=== PATIENT | male | born 1955 | race African-American/Black ===

== ENCOUNTER 2022-10-10 10:15 | Emergency (ER) | payer MEDICARE, SELFPAY ==
--- NOTE | ~2022-10-10 | XR_ITS ---
EXAMINATION: XR shoulder RT min 2V DATE: 10/10/2022 12:21 INDICATION: Right shoulder pain and limited range of motion TECHNIQUE: AP internally and externally rotated, AP oblique externally rotated and transscapular Y vi ews of the right shoulder were obtained. COMPARISON: None FINDINGS: Normal alignment. No fracture.Mild glenohumeral and moderate acromioclavicular osteoarthritis. Small to moderate-sized inferiorly directed osteophytes at the lateral head of the clavicle. The acromion undersurface is flat in morphology (type I). Soft tissues are unremarkable. Visualized portion of the right lung are clear. IMPRESSION: Mild right glenohumeral and moderate acromioclavicular osteoarthritis. Reviewed, dictated and finalized at location A.
--- NOTE | ~2022-10-10 | US_ITS ---
EXAMINATION: US venous doppler UE RT DATE: 10/10/2022 12:00 INDICATION: Right upper limb pain and swelling TECHNIQUE: Grayscale images without and with compression and Doppler images of the right upper extrem ity veins were obtained. COMPARISON: None. FINDINGS: The right internal jugular vein, subclavian vein, axillary vein, brachial vein, basilic vein, cephali c vein, radial vein, and ulnar vein are patent. IMPRESSION: 1. Patent right upper extremity veins. No evidence of venous thrombosis. Reviewed, dictated and finalized at location A.
[2022-10-10 10:17] VITALS: BP 166/93; PULSE 99; RESP 16; TEMP 36.7; O2SAT 98
[2022-10-10 11:22] LABS: Basophils Percent Auto 0.2 % (0.2-1.2); Eosinophils Percent Auto 0.2 % (0-4.4); Hematocrit 39.3 % (42.0-52.0); Hemoglobin 12.2 g/dL (14.0-18.0); Immature Granulocyte Absolute 0.01 K/mm3 (0.00-0.031); Immature Granulocyte Percent A 0.2 % (0-0.5); Lymphocytes Absolute Auto 1.89 K/mm3 (0.9-3.2); Lymphocytes Percent Auto 34.8 % (18.3-44.2); Mean Corpuscular Hemoglobin 27.2 pg (26-34); Mean Corpuscular Volume 87.7 fl (80-100); Mean Platelet Volume 10.8 fl (7.4-10.4); Monocytes Absolute Auto 0.5 K/mm3 (0.1-0.6); Monocytes Percent Auto 9.2 % (2.6-8.5); Neutrophils Percent Auto 55.4 % (45.5-73.1); Platelet Count Result 158 k/mm3 (150-375); Red Blood Count 4.48 M/mm3 (4.6-6.20); Red Cell Distribution Width 13.2 % (11.5-14.5); White Blood Count 5.4 K/mm3 (4.5-10.0)
[2022-10-10 11:32] LABS: Alanine Aminotransferase 18 U/L (6-50); Albumin Level 4.7 g/dL (3.5-5.1); Alkaline Phosphatase 41 U/L (38-126); Anion Gap 14 mmol/L (8-16); Aspartate Amino Transferase 26 U/L (17-59); Bilirubin,Total 1.2 mg/dL (0.2-1.3); Blood Urea Nitrogen 16 mg/dL (9-20); Calcium 9.5 mg/dL (8.4-10.2); Carbon Dioxide 21 mmol/L (22-30); Chloride 105 mmol/L (98-107); Creatine Kinase 83 U/L (55-170); Estimated CRCL calculation 75 ml/min; Estimated Glomerular Filt Rate > 60; Glucose 104 mg/dL (65-110); Potassium 3.6 mmol/L (3.4-5.0); Sodium 140 mmol/L (137-145)
--- NOTE | 2022-10-10 11:55 | ED.UPPEXIN ---
HPI - Extremity Injury (Upper) General Chief Complaint: Extremity Injury, Upper Stated Complaint: right arm injury Time Seen by Provider: 10/10/22 10:51 Source: patient and RN notes reviewed Mode of arrival: ambulatory Limitations: no limitations History of Present Illness HPI narrative: This is a 67 year old male who presents for evaluation of right shoulder pain. He states he has been doing push ups every day for 3 months and over the past week he has had right shoulder pain. Pain worse with movement. He also states his right arm seems swollen compare to his left. He denies numbness, tingling, neck pain or right lower extremity symptoms. He has not taken any medication for his pain. Related Data Allergies Allergy/AdvReac Type Severity Reaction Status Date / Time No Known Allergies Allergy Verified 10/10/22 13:27 Review of Systems Constitutional: Constitutional: Denies weakness Cardiovascular: Cardiovascular: Denies syncope, Denies rapid heart rate, Denies irregular heart rhythm, Denies leg edema and Denies dyspnea Respiratory: Respiratory: Denies chest congestion, Denies hemoptysis, Denies excessive phlegm production and Denies dyspnea Gastrointestinal: Gastrointestinal: Denies abdominal pain, Denies hematochezia, Denies diarrhea and Denies vomiting Genitourinary: Genitourinary: Denies hematuria, Denies dysuria, Denies penile discharge and Denies testicular pain Musculoskeletal: Musculoskeletal: Reports arthralgias, Reports joint swelling, Denies loss of height and Denies muscle weakness Neurologic: Denies syncope, Denies focal weakness and Denies weakness PMFSH Past Medical History Medical History (Updated 10/10/22 @ 13:27 by Cristal Yuen MD) Patient denies medical problems Social History Social History (Updated 10/10/22 @ 13:22 by Cristal Yuen MD) Smoking status: Never smoker Exam Const: General: no acute distress and alert Nutritional Appearance: well nourished Orientation/consciousness: patient oriented x3 Limitations: no limitations HENMT: Head: normal to inspection Eyes: EOM: EOMs intact bilaterally Neck: Neck: normal visual inspection Chest: Chest palpation & inspection: normal inspection of the chest Skin: General skin exam: normal color Rashes: no rashes Wounds: no wounds Neuro: General: patient oriented x3, moves all extremities and CN's II-XI intact bilaterally Extrem: Other: TTP right anterior shoulder, right arm pain with abduction and tremor to right arm with movement. sensation intact , radial pulse intact. Psych: Mental Status: mental status grossly normal Affect: normal affect Attitude: cooperative Course Vital Signs Vital signs: Vital Signs Temperature 98.0 F 10/10/22 10:17 Pulse Rate 99 10/10/22 10:17 Respiratory Rate 16 10/10/22 10:17 Blood Pressure 166/93 H 10/10/22 10:17 Pulse Oximetry 98 10/10/22 10:17 Oxygen Delivery Room Air 10/10/22 10:17 Temperature 98.0 F 10/10/22 10:17 Pulse Rate 85 10/10/22 13:31 Respiratory Rate 19 10/10/22 13:31 Blood Pressure 166/93 H 10/10/22 10:17 Pulse Oximetry 100 10/10/22 13:31 Oxygen Delivery Room Air 10/10/22 10:17 MDM - Extremity Injury (Upper) Differential Diagnosis Differential diagnosis: Likely dislocation of shoulder and other (rotator cuff injury, tendonitis. radiculopathy, shoulder pain, arthritis. ) Lab Data Attestation: I reviewed the patient's lab results. 10/10/22 11:14 10/10/22 11:14 Labs: Lab Results 10/10/22 Range/Units 11:14 WBC 5.4 (4.5-10.0) K/mm3 RBC 4.48 L (4.6-6.20) M/mm3 Hgb 12.2 L (14.0-18.0) g/dL Hct 39.3 L (42.0-52.0) % MCV 87.7 (80-100) fl MCH 27.2 (26-34) pg MCHC 31.0 L (32-36) g/dl RDW 13.2 (11.5-14.5) % Plt Count 158 (150-375) k/mm3 MPV 10.8 H (7.4-10.4) fl Immature Gran % (Auto) 0.2 (0-0.5) % Neut % (Auto) 55.4 (45.5-73.1) % Lymph % (Auto) 34.
[2022-10-10] MEDS: KETOROLAC 30 MG/ML VIAL (*BKC) IM (12:40)
[2022-10-10 13:31] VITALS: PULSE 85; RESP 19; O2SAT 100
== END 2022-10-10 13:32 | disposition home or self-care (01) ==
PROVIDERS: Emergency Provider General Practice
DX: S49.91XA Unspecified injury of right shoulder and upper arm, initial encounter (principal); X50.0XXA Overexertion from strenuous movement or load, initial encounter; M79.89 Other specified soft tissue disorders
CPT/HCPCS: 36415; 73030; 80053; 82550; 85025; 93971; 96372; 99284; A4565; J1885

== ENCOUNTER 2025-02-10 13:36 | Inpatient (IN) | payer MEDICARE, SELFPAY ==
[2025-02-10] VITALS (13 sets, daily range): BP systolic 143–193; BP diastolic 81–97; PULSE 89–108; RESP 16–23; TEMP 36.2–36.9; O2SAT 97–99; BMI 28.0
--- NOTE | ~2025-02-10 | XR_ITS ---
EXAMINATION: XR chest 1V portable COMPARISON: No comparisons available. HISTORY: dizziness FINDINGS: Small basilar infiltrates. Mild pulmonary venous congestion. No pneumothorax. Mild cardiomegaly. Mediastinal and hilar contours are within normal limits. Bony thorax no acute abnormality. Miscellaneous: None Impression: Mild CHF Reviewed, dictated and finalized at location P. STITCHING MACHINE ARMHOLE FELLER Impression: Mild CHF
--- NOTE | ~2025-02-10 | MR_ITS ---
EXAMINATION: MR brain/brain stem wo/w con DATE: 02/11/2025 12:12 INDICATION: Parkinson's disease. TECHNIQUE: Magnetic resonance imaging (MRI) of the brain and brainstem was performed without and with intravenous contrast. Sequences included sagittal and axial T1-weighted SE, axial diffusion-weighted FS SE, axial T2*-weighted GRE, axial T2-weighted FLAIR Propeller, and axial T2-weighted Propeller. Apparent diffusion coefficient (ADC) maps were created. 19 cc MultiHance administered intravenously. COMPARISON: CT brain dated 02/10/2025. FINDINGS: Mild generalized atrophy. There are scattered moderate periventricular and subcortical white matter changes, most likely related to small vessel ischemic disease (microangiopathy). No ventriculomegaly or midline shift. Paranasal sinuses are unremarkable. Orbits are symmetric without disconjugate gaze. No abnormal contrast enhancement. No acute infarction or hemorrhage. Structures of the posterior fossa including 7/8th cranial nerve complexes are normal. Paranasal sinuses are unremarkable. IMPRESSION: 1. No acute intracranial abnormality. Reviewed, dictated and finalized at location O. ZING MACHINE OPERATOR
--- NOTE | ~2025-02-10 | CT_ITS ---
EXAMINATION: CT angiogram, head and neck: DATE: 02/10/2025. INDICATION: Syncope. Dizziness. TECHNIQUE: CT angiogram was performed with 100 cc of Omnipaque 350. Multiplanar and 3-D reconstruction were obtained. COMPARISON: Noncontrast CT head dated 02/10/2025 FINDINGS: The vertebral arteries are patent in the neck on both sides. No hemodynamically significant obstruction of the common carotid and internal carotid arteries in the neck. No evidence of carotid dissection. Vertebral and basilar arteries are patent at the skull base. Posterior cerebral arteries are patent on both sides. Intracranial portion of internal carotid arteries are patent on both sides. The anterior cerebral arteries are patent. Middle cerebral arteries are patent. Dural venous sinuses are patent. IMPRESSION: 1. Vertebral arteries are patent in the neck on both sides. No hemodynamically significant obstruction of the carotid arteries in the neck based on nascet criteria. 2. Major arteries of [place] are patent. Dural venous sinuses are patent. Reviewed, dictated and finalized at location T. RONMENTAL INTERN IMPRESSION: 1. Vertebral arteries are patent in the neck on both sides. No hemodynamically significant obstruction of the carotid arteries in the neck based on nascet cri teria. 2. Major arteries of [place] are patent. Dural venous sinuses are garnica nt.
--- NOTE | ~2025-02-10 | CT_ITS ---
EXAMINATION: CT brain wo con DATE: 02/10/2025 14:04 INDICATION: Dizziness. Syncope. TECHNIQUE: Computed tomography (CT) of the head was performed without intravenous contrast. Sagittal and coronal reconstructions were performed. The mA was adjusted according to patient size. Iterative reconstruction technique was employed. The dose-length product was 605.33 mGy-cm. COMPARISON: None FINDINGS: No acute intracranial hemorrhage, acute infarction or abnormal extra axial fluid collection. There is mild to moderate scattered white matter hypoattenuation consistent with chronic small vessel ischemic disease. Symmetric prominence of the sulci consistent with mild age-appropriate diffuse cerebral volume loss. Ventricles are normal and symmetric. No mass/mass effect. Mild mucosal thickening the bilateral maxillary sinuses. The orbits and mastoid air cells are normal. Intracranial calcified cerebral atherosclerosis is noted. IMPRESSION: 1. No acute intracranial process. 2. Age-related changes including mild diffuse volume loss and mild to moderate scattered white matter hypoattenuation consistent with chronic small vessel ischemic disease. Reviewed, dictated and finalized at location A. ANGIOGRAPHY IMPRESSION: 1. No acute intracranial process. 2. Age-related changes including mild diffuse volume loss and mild to moderate scattered white matter hypoattenuation consistent with chronic small vessel isc hemic disease.
--- NOTE | 2025-02-10 13:38 | ECG_ITS ---
Test Date: 2025-02-10 14:23:57 Measurements Intervals [place] Rate: 108 P: 54 [place]: 205 QRS: 18 QRSD: 91 T: 44 QT: 320 QTc: 431 Interpretive Statements SINUS TACHYCARDIA ABNORMAL RHYTHM ECG No previous ECG available for comparison Electronically Signed On 02-10-2025 17:35:17 [employer] CUR[employer] by Rodrigo Ny M.D.
[2025-02-10 14:17] LABS: Hematocrit 41.7 % (42.0-52.0); Hemoglobin 13.4 g/dL (14.0-18.0); Immature Granulocyte Percent A 0.2 % (0-0.5); Lymphocytes Absolute Auto 2.84 K/mm3 (0.9-3.2); Mean Corpuscular HGB Conc 32.1 g/dl (32-36); Mean Corpuscular Hemoglobin 28.5 pg (26-34); Mean Corpuscular Volume 88.5 fl (80-100); Nucleated Red Blood Cells Absolute Auto 0.000 K/mm3 (0.0-0.012); Nucleated Red Blood Cells Perc 0.0 % (0.0-0.2); Platelet Count Result 167 k/mm3 (150-375); Red Blood Count 4.71 M/mm3 (4.6-6.20); White Blood Count 9.2 K/mm3 (4.5-10.0)
[2025-02-10 14:28] LABS: Estimated CRCL calculation 73 ml/min; Estimated Glomerular Filt Rate > 60
[2025-02-10 14:31] LABS: Alanine Aminotransferase 10 U/L (6-50); Albumin Level 4.7 g/dL (3.5-5.1); Alkaline Phosphatase 52 U/L (38-126); Anion Gap 10 mmol/L (4-12); Aspartate Amino Transferase 28 U/L (17-59); Bilirubin,Total 1.3 mg/dL (0.2-1.3); Blood Urea Nitrogen 11 mg/dL (9-20); Calcium 9.9 mg/dL (8.4-10.2); Carbon Dioxide 25 mmol/L (22-30); Chloride 103 mmol/L (98-107); Estimated CRCL calculation 79 ml/min; Estimated Glomerular Filt Rate > 60; Glucose 132 mg/dL (65-110); Potassium 3.5 mmol/L (3.4-5.0); Sodium 138 mmol/L (137-145); Total Protein 8.7 g/dL (6.3-8.2)
[2025-02-10 14:34] LABS: INR 1.1; Partial Thromboplastin Time 28.9 Seconds (22.3-36.8); Prothrombin Time 14.1 Seconds (11.1-14.7)
--- NOTE | 2025-02-10 14:38 | ED.GENADULT ---
HPI - General Adult General Chief complaint: Syncope Stated complaint: SYNCOPE Time Seen by Provider: 02/10/25 13:58 History of Present Illness HPI narrative: Patient is 69-year-old gentleman presents emergency department with chief complaint dizziness patient has history of a tremor that is be evaluate it for possible Parkinson's the patient has a MRI scheduled for next week and [place]av[place] today the family noticed that he got up and reports that around noon he had increasing tremor on his right side reports that his right leg felt weaker and felt dizzy the patient's family reports that he had a brief episode where he passed out during the episode patient denies chest pain reports that his symptoms are doing much better at this time but still reports some weakness in his right leg still feels somewhat dizzy patient has no prior history of CVA is not on any blood thinners Related Data Home Medications ?Medication ?Instructions ?Recorded ?Confirmed ?Last Taken ?Type No Home Medications 03/30/23 03/30/23 Unknown History Allergies Allergy/AdvReac Type Severity Reaction Status Date / Time No Known Allergies Allergy Verified 02/10/25 14:26 Review of Systems Review of Systems: A 10 system review of systems was completed on the patient and is negative except for what is stated in the HPI. Nursing and ancillary documentation was reviewed. [facility] Past Medical History Medical History Patient denies medical problems Surgical History Surgical History H/O bilateral inguinal hernia repair Family History Family History Father , age 78 Cerebrovascular accident Mother , age 79. No problems noted. Social History Social History Smoking status: Never smoker Alcohol intake: never Substance use: never Living arrangements: with family Occupation/Education: retired Additional occupation/education comments: [employer] Gender identity (if verbalized by the patient): Male Sexual Orientation (if Verbalized by the Patient): Straight or Heterosexual Exam Narrative: GENERAL: Well-appearing, well-nourished, and in no acute distress. HEAD: Normocephalic, atraumatic. EYES: PERRLA and EOMI. ENT: Nares clear, no rhinorrhea or epistaxis. Mucous membranes moist. NECK: Supple. CHEST: Clear to auscultation. No respiratory distress. HEART: Regular rate and rhythm. No murmur heard. Normal peripheral pulses. ABDOMEN: Soft, nontender, nondistended, normal active bowel sounds. EXTREMITIES: Normal range of motion. No edema. SKIN: Warm, dry, no rash. NEURO: No focal deficits. Alert and oriented x3. Parkinsonian tremor of the right upper extremity PSYCH: Normal mood and affect. Course Vital Signs Vital signs: Vital Signs Temperature 36.2 C L 02/10/25 13:41 Pulse Rate 89 02/10/25 13:41 Respiratory Rate 18 02/10/25 13:41 Blood Pressure 193/81 H 02/10/25 13:41 Pulse Oximetry 98 02/10/25 13:41 Oxygen Delivery Room Air 02/10/25 13:41 Temperature 36.8 C 02/10/25 14:24 Pulse Rate 108 H 02/10/25 14:24 Respiratory Rate 19 02/10/25 14:24 Blood Pressure 175/97 H 02/10/25 14:24 Pulse Oximetry 97 02/10/25 14:24 Oxygen Delivery Room Air 02/10/25 14:22 Medical Decision Making Vital Signs Vital Signs: Vital Signs Temperature 36.2 C L 02/10/25 13:41 Pulse Rate 89 02/10/25 13:41 Respiratory Rate 18 02/10/25 13:41 Blood Pressure 193/81 H 02/10/25 13:41 Pulse Oximetry 98 02/10/25 13:41 Oxygen Delivery Room Air 02/10/25 13:41 Temperature 36.8 C 02/10/25 14:24 Pulse Rate 108 H 02/10/25 14:24 Respiratory Rate 19 02/10/25 14:24 Blood Pressure 175/97 H 02/10/25 14:24 Pulse Oximetry 97 02/10/25 14:24 Oxygen Delivery Room Air 02/10/25 14:22 Lab Data 02/10/25 14:07 02/10/25 14:11 Labs: Lab Results 02/10/25 02/10/25 02/10/25 Range/Units 13:55 14:07 14:11 WBC 9.2 (4.5-10.0) K/mm3 RBC 4.71 (4.6-6.20) M/mm3 Hgb 13.4 L (14.0-18.0) g/dL Hct 41.7 L (42.0-52.0) % MCV 88.5 (80-100) fl MCH 28.5 (26-34) pg MCHC 32.1 (32-36) g/dl RDW 13.0 (11.5-14.5) % Plt Count 167 (150-375) k/mm3 MPV 10.7 H (7.4-10.4) fl Immature Gran % (Auto) 0.2 (0-0.5) % Neut % (Auto) 61.5 (45.5-73.1) % Lymph % (Auto) 31.0 (18.3-44.2) % [place] % (Auto) 7.1 (2.6-8.5) % Eos % (Auto) 0.1 (0-4.4) % Baso % (Auto) 0.1 L (0.2-1.2) % Lymph # (Auto) 2.84 (0.9-3.2) K/mm3 [place] # (Auto) 0.7 H (0.1-0.6) K/mm3 Eos # (Auto) 0.0 (0-0.3) K/mm3 Baso # (Auto) 0.0 (0.0-0.1) K/mm3 Abs Immat Gran (auto) 0.02 (0.00-0.031) K/mm3 Absolute Neuts (auto) 5.6 (1.3-6.7) K/mm3 Absolute Nucleated RBC 0.000 (0.0-0.012) K/mm3 Nucleated RBC % 0.0 (0.0-0.2) % PT 14.1 (11.1-14.7) Seconds INR 1.1 APTT 28.9 (22.3-36.8) Seconds Sodium 138 (137-145) mmol/L Potassium 3.5 (3.4-5.0) mmol/L Chloride 103 (98-107) mmol/L Carbon Dioxide 25 (22-30) mmol/L Anion Gap 10 (4-12) mmol/L BUN 11 D (9-20) mg/dL Creatinine 0.83 0.90 (0.7-1.3) mg/dL Estim Creat Clear Calc 79 73 ml/min Estimated GFR > 60 > 60 (59 - ) Glucose 132 H (65-110) mg/dL POC Capillary Glucose 128 H (65-105) mg/dl Calcium 9.9 (8.4-10.2) mg/dL Total Bilirubin 1.3 (0.2-1.3) mg/dL AST 28 (17-59) U/L ALT 10 (6-50) U/L Alkaline Phosphatase 52 (38-126) U/L Troponin I < 0.012 (0.000-0.034) ng/mL Total Protein 8.7 H (6.3-8.2) g/dL Albumin 4.7 (3.5-5.1) g/dL Discharge Plan Discharge Clinical Impression: Dizziness, Syncope, Parkinson's disease Patient Disposition: Still a Patient Condition: Stable Patient Language: Croatian Prescriptions: No Action No Home Medications Follow-up/Referrals: Edgard Marquez APRN [Primary Care Provider, Internal Medicine] Time of Disposition: 15:35
[2025-02-10 14:42] LABS: Troponin I < 0.012 ng/mL (0.000-0.034)
--- OUTSIDE RECORDS SUMMARY | 2025-02-10 15:20 | XMS_ITS | Clinical Summary ---
Author Organization [facility] Address [address] [place] [address] Care Team Providers Care Glass Tinter Name Role Phone Matthieu Weston MD Primary Care Provider [phone] Allergies No known active allergies Medications losartan (COZAAR) 50 MG tabletIndications: Hypertension, unspecified type Take 1 tablet (50 mg total) by mouth daily. 30 tablet 1 08/21/19 24 Active Additional Information Patient not taking.Reported on 01/09/2025 carbidopa-levodopa (SINEMET) 25-100 MG tabletIndications: Parkinson's disease, unspecified whether dyskinesia present, unspecified whether manifestations fluctuate ([facility]) Take 1 tablet by mouth 3 (three) times daily. 270 tablet 3 01/10/20 25 026 Active Active Problems Problem Noted Date Diagnosed Date Hypertension, unspecified type 08/21/2023 Tetany 08/21/2023 Tremor 08/21/2023 Encounters Date Type Department Care Team Description 01/09/2025 8:20 AM CDT Office Visit [facility] Multispecialty Care - [facility] [address], [address] [place] [address] Viola Flanagan MD New Patient; Tremors 01/09/2025 Travel 12/26/2024 [facility] [address] [place] [address] Enedelia Moore LPN Pre-visit Gap Closure from Last 3 Months Family History Medical History Relation Comments No Known Problems Brother No Known Problems Daughter No Known Problems Father No Known Problems Mother No Known Problems Sister No Known Problems Son Relation Status Comments Brother Alive Daughter Alive Father Mother Sister Alive Son Alive Social History Tobacco Use Types Packs/Day Years Used Date Smoking Tobacco: Never Passive Smoke Exposure: Never Smokeless Tobacco: Never Tobacco Cessation:Counseling Given: Not Answered Alcohol Use Standard Drinks/Week Comments Not Currently 0 (1 standard drink = 0.6 oz pur e alcohol) PHQ-2 Answer Date Recorded Patient Health Questionnaire-2 Score 0 10/17/2024 Sex and Gender Information Value Date Recorded Sex Assigned at Not on file Legal Sex Male 3:42 PM CDT Gender Identity Not on file Sexual Orientation Not on file Last Filed Vital Signs Vital Sign Reading Time Taken Comments Blood Pressure 177/98 01/09/2025 8:33 AM CDT Pulse 100 01/09/2025 8:33 AM CDT Temperature 37.8 C (100 F) 01/09/2025 8:33 AM CDT Respiratory Rate 16 08/21/2023 1:07 PM CDT Oxygen Saturation 99% 01/09/2025 8:33 AM CDT Inhaled Oxygen Concentration - - Weight 88.9 kg (196 lb) 01/09/2025 8:33 AM CDT Height 175.3 cm (5' 9) 01/09/2025 8:33 AM CDT Body Mass Index 28.94 01/09/2025 8:33 AM CDT Plan of Treatment Upcoming Encounters Date Type Department Care Team (Late st Contact Info) Description 02/20/2025 3:30 PM COOKING CHEF Appointment [facility] [place] [address] Viola Flanagan MD [address] [place] [address] 04/03/2025 1:20 PM COOKING CHEF Office Visit [facility] Medical Group Multispecialty Care - [facility] [address] [facility] [address], [address] [place] [phone] Viola Flanagan MD [address] [place] [address] Health Maintenance Due Date Last Done Comments Colorectal Cancer Screening Colonoscopy (10 Years) 1956 Hepatitis C 1974 DTaP, Tdap and Td Vaccines ( 1 - Tdap) 1975 Pneumococcal Vaccine: 50+ Ye ars (1 of 1 - PCV) 2006 Zoster Vaccines (1 of 2) 2006 Annual Medicare Wellness Visit 2021 COVID-19 Vaccine (1 - 2024-2 6 season) 2024 Influenza Adult (#1) 2024 RSV Immunization or 60+ Years (1 - 1-dose 75+ series) 2031 PHQ-2 (Physician [place]) Completed 10/17/2024 Hepatitis A Vaccines Aged Out No long er eligible based on patient's age to complete this topic Meningococcal B Vaccine Aged Out No l onger eligible based on patient's age to complete this topic Meningococcal Vaccine Aged Out No jad collin eligible based on patient's age to complete this topic RSV Immunizations Under 20 Months Aged Out No longer eligible based on patient's age to complete this topic Insurance MEDICARE Care Teams Glass Tinter Relationship Specialty Start Date End Date Matthieu Weston MD [address] [place] [address]. [place] [id number] PCP - General FAMILY PRACTICE 12/01/24
--- OUTSIDE RECORDS SUMMARY | 2025-02-10 15:20 | XMS_ITS | Clinical Summary ---
Author Organization [facility] Address [address] [place] [address] Care Team Providers Care Livestock Yard Attendant Name Role Phone Reinaldo Perez MD Primary Care Provider [phone] Social History Tobacco Use Types Packs/Day Years Used Date Smoking Tobacco: Never Assessed Personal Safety Answer Date Recorded Getting School Help Needed Not on file 08/20 Sex and Gender Information Value Date Recorded Sex Assigned at Not on file Legal Sex Male 2:37 PM CDT Gender Identity Not on file Sexual Orientation Not on file Plan of Treatment Not on file Insurance MEDICARE Care Teams Livestock Yard Attendant Relationship Specialty Start Date End Date Reinaldo Perez MD PCP - General Family Practice 08/21/23
--- OUTSIDE RECORDS SUMMARY | 2025-02-10 15:56 | XMS_ITS | Clinical Summary ---
Author Organization [facility] Address [address] [place] [address] Care Team Providers Care Concreting Supervisor Name Role Phone Reinaldo Perez MD Primary Care Provider [phone] Social History Tobacco Use Types Packs/Day Years [...] Not on file Insurance MEDICARE Care Teams Concreting Supervisor Relationship Specialty Start Date End Date Reinaldo Perez MD PCP - General Family Practice 08/21/23
--- OUTSIDE RECORDS SUMMARY | 2025-02-10 15:56 | XMS_ITS | Clinical Summary ---
Author Organization [facility] Address [address] [place] [address] Care Team Providers Care Elementary Reading Tutor Name Role Phone Matthieu Weston MD Primary Care Provider [phone] Allergies No known active allergies Medications losartan (COZAAR) 50 MG tabletIndications: Hypertension, unspecified type Take 1 tablet (50 mg total) by mouth daily. 30 tablet 1 08/21/19 24 Active Additional Information Patient not taking.Reported on 01/09/2025 carbidopa-levodopa (SINEMET) 25-100 MG tabletIndications: Parkinson's disease, unspecified whether dyskinesia present, unspecified whether manifestations fluctuate ([facility]) Take 1 tablet by mouth 3 (three) times daily. 270 tablet 3 01/10/20 25 026 Active Active Problems Problem Noted Date Diagnosed Date Hypertension, unspecified type 08/21/2023 Tetany 08/21/2023 Tremor 08/21/2023 Encounters Date Type Department Care Team Description 01/09/2025 8:20 AM CDT Office Visit [facility] Medical Group Multispecialty Care - [facility] [address] [facility], [address] [place] [address] Viola Flanagan MD New Patient; Tremors 01/09/2025 Travel 12/26/2024 [facility] [address] [place] [address] Enedelia Moore LPN Pre-visit Gap [...] st Contact Info) Description 02/20/2025 3:30 PM FOUNTAIN SERVER Appointment [facility] [place] [address] Viola Flanagan MD [address] [place] [address] 04/03/2025 1:20 PM FOUNTAIN SERVER Office Visit [facility] Medical Group Multispecialty Care - [facility] [address] [facility], [address] [place] [phone] Viola Flanagan MD [address] [place] [address] Health Maintenance Due Date Last Done Comments [...] - 1-dose 75+ series) 2031 PHQ-2 (Physician [place]) Completed 10/17/2024 Hepatitis A Vaccines Aged Out [...] complete this topic Insurance MEDICARE Care Teams Elementary Reading Tutor Relationship Specialty Start Date End Date Matthieu Weston MD [address] [place] [address]. [place] [id number] PCP - General FAMILY PRACTICE 12/01/24
--- NOTE | 2025-02-10 17:00 | WPCEDHO ---
ED Hand Off Checklist All vitals saved:yes IV Site documented:yes All med administrations documented:yes Triage Note Triage Note Patient to the ED with complaints 02/10/25 14:22 of increasing right sided tremor and dizziness that began at 1300 . Patient has history of tremor at baseline. Patient usually able to ambulate without assistance. Patient is A&Ox3-4 at this time Allergies No Known Allergies Allergy (Verified 02/10/25 14:26) Family History (Last Reviewed 02/10/25 @ 14:40 by Ricardo Salcido MD) Father Cerebrovascular accident Mother No problems noted. Interventions/Assessments IV / Saline Lock, Insert Start: 02/10/25 13:55 Freq: STAT Status: Active Protocol: Document 02/10/25 14:24 [facility] (Rec: 02/10/25 14:25 [facility] [id number]) IV Assessment Peripheral Access Left Antecubital IV Catheter Access Initiated IV Insertion Date 02/10/25 IV Insertion Time 14:25 Catheter Gauge 18 IV Insertion 1 Attempts Ultrasound Used for No Placement IV Site Assessment WNL IV Care and WNL Maintenance PA: Cardiovascular Assessment Start: 02/10/25 13:37 Freq: Status: Active Protocol: Document 02/10/25 14:25 TM (Rec: 02/10/25 14:25 [facility] [id number]) Cardiovascular Assessment Cardiovascular Lightheadedness Symptoms Skin Description Normal Color Heart Sounds Normal Jugular Vein None Distention PA: Neurological Assessment Start: 02/10/25 13:37 Freq: Status: Active Protocol: Document 02/10/25 14:26 [facility] (Rec: 02/10/25 14:26 [facility] [id number]) Neurological Assessment Level of Alert,Awake Consciousness Arousable to Verbal Orientation Oriented to Person,Oriented to Place Neurological Dizziness,Weakness, General Symptoms Hallucination Type None Unable to Redirect No Behavior Behavior Appropriate,Cooperative Patient Able to Comprehend Comprehension Memory Description Intact Ability to Maintain Impaired Balance Facial Symmetry Symmetrical Speech Pattern Clear Ability to Swallow Normal Tongue Position Midline Last Vital Signs Temperature 98.3 F 02/10/25 14:24 Pulse Rate 101 H 02/10/25 16:46 Respiratory Rate 20 02/10/25 16:46 Pulse Oximetry 98 02/10/25 16:46 Blood Pressure 150/93 H 02/10/25 16:46 Blood Pressure Mean 109 02/10/25 16:46 Blood Pressure Position Sitting 02/10/25 13:41 Oxygen Delivery Room Air 02/10/25 14:22 Weight 91.3 kg 02/10/25 14:22 Last Result - Abnormals Only Hgb 13.4 g/dL (14.0-18.0) L 02/10/25 14:07 Hct 41.7 % (42.0-52.0) L 02/10/25 14:07 MPV 10.7 fl (7.4-10.4) H 02/10/25 14:07 Baso % (Auto) 0.1 % (0.2-1.2) L 02/10/25 14:07 [place] # (Auto) 0.7 K/mm3 (0.1-0.6) H 02/10/25 14:07 Glucose 132 mg/dL (65-110) H 02/10/25 14:07 POC Capillary Glucose 128 mg/dl (65-105) H 02/10/25 13:55 Total Protein 8.7 g/dL (6.3-8.2) H 02/10/25 14:07 Most Recent Suicide Severity Rating Suicide Severity Rating NO RISK INDICATED 02/10/25 14:22
--- NOTE | 2025-02-10 17:07 | PC.NURSE ---
Patient has right sided tremors in upper and lower extremity which is baseline for patient per family. Patient and family state he is scheduled for an MRI soon.
--- NOTE | 2025-02-10 17:33 | ADMGEN ---
This patient, Edgard Culp, was admitted to [facility] Surg Room 301-01. Patient/family oriented to hospital policies and general routines including ID bracelet, bed and alarms, visiting hours, pain management, procedures, bathroom and other care routines, personal items, smoking policy, room service/diet, and visiting hours. Information on how to activate the Rapid Response Team has been discussed. Patient/Family are encouraged to report perceived risks to care and to ask questions if they do not understand what they are told or what they should do.
[2025-02-10] MEDS: CARBIDOPA/LEVODOPA 25/100 MG TABLET 1 TABLET PO (22:34)
[2025-02-11] VITALS (9 sets, daily range): BP systolic 110–159; BP diastolic 65–93; PULSE 78–102; RESP 14–20; TEMP 36.1–37.3; O2SAT 97–99
--- NOTE | 2025-02-11 | ECHO_ITS ---
Patient Info Name: Edgard Blake Age: 69 years : 1955 Gender: Male Ht: 71 in Wt: 175 lbs BSA: 2.00 m2 HR: 82 bpm BP: 159 / 93 mmHg Heart Rhythm: Sinus Rhythm Technical Quality: Good Exam Date: 02/11/2025 9:11 AM Patient Status: I Admit Date: 02/11/2025 Exam Type: CA echo doppler w bubble study Complete two-dimensional, color flow and Doppler transthoracic echocardiogram is performed with agitated saline. Staff Referring Physician: Ricardo Salcido MD Contract Management Specialist: Virginie Biggs Attending Provider: Debby Wilkerson Contrast/Agitated Saline Contrast/Ag. Saline: Agitated Saline Amount: 20.00 ml Summary 1. Normal left ventricular size, thickness and systolic contractility. 2. Grade 1 diastolic noncompliance. 3. No significant valvular abnormality. Left Ventricle Left ventricular chamber dimension is normal. Left ventricular systolic function is normal, estimated at 60-65. The left ventricular diastolic function is grade I diastolic dysfunction. Right Ventricle Right ventricular chamber dimension is normal. Left Atria Left atrial chamber dimension is normal. Right Atria Right atrial chamber dimension is normal. Aortic Valve The aortic valve is normal. Pulmonic Valve The pulmonic valve is normal. Mitral Valve The mitral valve has normal leaflets. The mitral valve annulus is mildly calcified. Tricuspid Valve The tricuspid valve leaflets are normal. Pericardium/Pleural The pericardium appears normal. Aorta The aortic root size at the sinus of Valsalva is normal. Left Ventricular Outflow Tract Name Value Normal LVOT 2D LVOT Diameter 2.0 cm LVOT Doppler LVOT Peak Velocity 104 cm/s LVOT Peak Gradient 4 mmHg LVOT Mean Gradient 2 mmHg LVOT VTI 18 cm LVOT Stroke Volume 59 ml LVOT CO 5.0 l/min LVOT CI 2.5 l/min/m2 Pulmonic Valve Name Value Normal RVOT Doppler RVOT Peak Velocity 66 cm/s RVOT Peak Gradient 2 mmHg PV Doppler PV Peak Velocity 91 cm/s PV Peak Gradient 3 mmHg Mitral Valve Name Value Normal MV Doppler MV Peak Gradient 5 mmHg MV Mean Gradient 3 mmHg MV Area (Cont Eq VTI) 2.0 cm2 MV Diastolic Function MV E Peak Velocity 80 cm/s MV A Peak Velocity 99 cm/s MV E/A 0.8 MV Decel Time (PW) 483 ms MV Annular TDI MV E/e' (Septal) 10.0 MV E/e' (Lateral) 7.2 MV E/e' (Average) 8.6 Aortic Valve Name Value Normal AV Doppler AV Peak Velocity 119 cm/s AV Peak Gradient 6 mmHg AV Area (Cont Eq Vazquez) 2.8 cm2 AV DI (Vazquez) 0.87 AV Regurgitation 2D LVOT Area 3.2 cm2 Ventricles Name Value Normal LV Dimensions 2D/MM IVS Diastolic Thickness (2D) 0.6 cm 0.6-1.0 LVID Diastole (2D) 4.6 cm 4.2-5.8 LVIW Diastolic Thickness (2D) 0.9 cm 0.6-1.0 LVID Systole (2D) 3.2 cm 2.5-4.0 LVOT Diameter 2.0 cm LV Mass (2D Cubed) 114.71 g 88.00-224.00 LV Mass Index (2D Cubed) 57 g/m2 49-115 Relative Wall Thickness (2D) 0.39 <=0.42 LV Fractional Shortening/Ejection Fraction 2D/MM LV Fractional Shortening (2D) 32 % 25-43 LV EF (2D Teichholz) 59 % LV Diastolic Volume (4C MOD) 113 ml LV EF (4C MOD) 66 % LV Diastolic Volume (2C MOD) 123 ml LV EF (2C MOD) 53 % LV Diastolic Volume (BP MOD) 119 ml 62-150 LV Diastolic Volume Index (BP MOD) 60 ml/m2 34-74 LV Systolic Volume (BP MOD) 47 ml 21-61 LV Systolic Volume Index (BP MOD) 24 ml/m2 11-31 LV EF (BP MOD) 60 % 52-72 LV Diastolic Length (4C) 8.9 cm LV Systolic Length (4C) 7.3 cm LV Stroke Volume (4C MOD) 75 ml Atria Name Value Normal LA Dimensions LA Volume (4C A-L) 25 ml LA Volume (BP A-L) 34 ml RA Dimensions RA Systolic Major [place] Length (4C) 4.3 cm 2.1-2.7 RA Area (4C) 10.5 cm2 <=18.0 Report Signatures
--- NOTE | 2025-02-11 03:51 | P.HP_ITS ---
H&P: HPI History of Present Illness Date/Time: 02/11/25 03:51 Chief Complaint: Increased right-sided tremor and dizziness starting at 13:00 Narrative: 69-year-old male with a past medical history of Parkinson's disease who presented to the ER with increasing right-sided tremors and dizziness that started on afternoon the . Source of information mostly comes from ER physician documentation. The patient and his son who are at bedside cannot provide the best history. Somewhere between 4-6 months ago the patient began having tremors. It sounds as if the patient has been having a shuffling gait for the last 4-6 months and is being ending progressively worse. He has had a slowed speech pattern. His was contacted on the phone in she adamantly denies patient having any episodes of confusion. A during my evaluation patient was oriented to person place and year in the name of the current president. However he stated that the month was February. As an asked him what holiday it was and he said February again ill. He then corrected himself and said that it was and then realized that it was January. He has marked tremor and rigidity with his right upper and lower extremity with any active movement. He does still have some tremor at rest as well with marked rigidity of the right hand and wrist. He fell twice yesterday resulting in him being brought to the hospital. He told nursing staff that he did not have difficulty with urinary incontinence although patient's undergarments were soiled with urine patient smelled strongly of urine. He was somewhat disheveled in appearance. He denies any pain or other concerns. His told me over the phone that the patient is scheduled to have a outpatient MRI of the brain on February 20. He was evaluated by neurologist as outpatient through [facility] in [facility]. He was started on Sinemet at that time. The patient's had informed nursing staff that the patient's tremor had improved significantly since initiating Sinemet therapy. Review of Systems 2 Review of Systems: 12 systems were reviewed with pertinent positives and negatives per HPI. Except as documented in the HPI, all other systems were reviewed and are negative. But reliability is in question. [facility] Past Medical History Medical History (Updated 02/11/25 @ 08:22 by Queta Dodge DO) Essential hypertension Parkinson's disease Surgical History Surgical History (Updated 02/11/25 @ 04:01 by Queta Dodge DO) H/O bilateral inguinal hernia repair Family History Family History Father , age 78 Cerebrovascular accident Mother , age 79. No problems noted. Social History Social History (Updated 02/11/25 @ 08:19 by Queta Dodge DO) Social History: The patient is been to his current for 2 years. He has 9 children. He is a lifelong nonsmoker and does not drink alcohol or use illicit substances. 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 Code status: Full code Surrogate decision maker: Smoking status: Never smoker Alcohol intake: never Substance use: never Lack of Transportation: No Lack of Food: Never True Current Housing: I Have Housing Concerned About Future Housing: No Difficulty Paying Gas/Electric Bills: No Difficulty Paying for Meds: No Currently Unemployed: No Education: Decline to Answer Difficulty w/ Childcare or Family Care: No Living arrangements: with family Occupation/Education: retired Additional occupation/education comments: [employer] Gender identity (if verbalized by the patient): Male Sexual Orientation (if Verbalized by the Patient): Straight or Heterosexual Spiritual care concerns: No Meds Home Medications and Allergies Home Medications ?Medication ?Instructions ?Recorded ?Confirmed ?Type carbidopa 25 mg-levodopa 100 mg 1 tablet PO TID 02/10/25 History tablet Allergies Allergy/AdvReac Type Severity Reaction Status Date / Time No Known Allergies Allergy Verified 02/10/25 18:18 Vital Signs Vital Signs - 24 hr 02/10/25 13:41 02/10/25 14:22 02/10/25 14:24 Temperature 97.1 F L 98.3 F 98.3 F Pulse Rate 89 108 H 108 H Respiratory Rate 18 16 19 Blood Pressure 193/81 H 175/97 H 175/97 H Pulse Oximetry 98 98 97 Oxygen Delivery Room Air Room Air 02/10/25 15:46 02/10/25 15:53 02/10/25 16:01 Temperature Pulse Rate 102 H 104 H 104 H Respiratory Rate 23 H 23 H 23 H Blood Pressure 159/96 H 144/94 H 158/96 H Pulse Oximetry 99 98 99 Oxygen Delivery 02/10/25 16:16 02/10/25 16:31 02/10/25 16:45 Temperature Pulse Rate 103 H 103 H 99 Respiratory Rate 19 20 20 Blood Pressure 143/89 H 146/94 H Pulse Oximetry 98 98 98 Oxygen Delivery 02/10/25 16:46 02/10/25 17:54 02/10/25 18:32 Temperature 97.5 F L Pulse Rate 101 H 102 H Respiratory Rate 20 18 Blood Pressure 150/93 H 151/83 H Pulse Oximetry 98 97 Oxygen Delivery Room Air 02/10/25 19:52 02/10/25 20:00 02/11/25 00:00 Temperature 98.4 F Pulse Rate 99 104 H 81 Respiratory Rate 20 Blood Pressure 152/94 H Pulse Oximetry 97 Oxygen Delivery Exam 2 Narrative: Weight 79.5 kg BMI 24.4 Const: Other: Lying flat in bed, on no acute distress, appears older than stated age well- developed well-nourished HENMT: Other: Mucous membranes are tacky, no oral pharyngeal erythema, head is normocephalic atraumatic Eyes: Other: Pupils are equal and reactive with patient seems to have difficulty following commands fracture ocular movements and will not deviates his eyes from 1 position his responses are somewhat slowed, answers questions appropriately but only provide 1 or 2 word answers is Resp: Other: Clear to auscultation bilaterally, no increased work of breathing Cardio: Other: Regular rate, regular rhythm, 2+ bilateral radial and pedal pulses, no JVD, no murmur GI: Other: Soft, nontender, nondistended, normoactive bowel sounds Skin: Other: Dried flaking skin and buildup noted on the face and in the creases of patient's hand Neuro: Other: Patient is alert oriented to person, place, year and name of the current president, he has increased tone and rigidity with marked tremors of his right upper and lower extremity with any active movement, he is unable to completely extend the fingers of his hand, he does have tremor of the left upper extremities well but markedly less in intensity and he has much better fine motor control over the left upper lower extremity, he is unable to follow commands to complete extraocular movement exam, tongue is midline, speech is clear but slow with delayed responses, patient answers questions in 1-2 words but does not truly carry a conversation, he has no facial asymmetry cranial nerves 2-12. But grossly intact Extrem: Other: Patient has 5/5 lead consultant strength bilaterally but once the patient clenches his fist he has difficulty releasing under has 5/5 strength in the biceps and triceps as well Psych: Other: Odd affect, otherwise cooperative H&P: Results Labs Labs: Laboratory Tests 02/10/25 14:07 02/10/25 14:11 02/10/25 02/10/25 02/10/25 13:55 14:07 14:11 WBC 9.2 RBC 4.71 Hgb 13.4 L Hct 41.7 L MCV 88.5 MCH 28.5 MCHC 32.1 RDW 13.0 Plt Count 167 MPV 10.7 H Immature Gran % (Auto) 0.2 Neut % (Auto) 61.5 Lymph % (Auto) 31.0 [place] % (Auto) 7.1 Eos % (Auto) 0.1 Baso % (Auto) 0.1 L Lymph # (Auto) 2.84 [place] # (Auto) 0.7 H Eos # (Auto) 0.0 Baso # (Auto) 0.0 Abs Immat Gran (auto) 0.02 Absolute Neuts (auto) 5.6 Absolute Nucleated RBC 0.000 Nucleated RBC % 0.0 PT 14.1 INR 1.1 APTT 28.9 Sodium 138 Potassium 3.5 Chloride 103 Carbon Dioxide 25 Anion Gap 10 BUN 11 D Creatinine 0.83 0.90 Estim Creat Clear Calc 79 73 Estimated GFR > 60 > 60 Glucose 132 H POC Capillary Glucose 128 H Calcium 9.9 Total Bilirubin 1.3 AST 28 ALT 10 Alkaline Phosphatase 52 Troponin I < 0.012 Total Protein 8.7 H Albumin 4.7 Triglycerides Cholesterol LDL Cholesterol Direct HDL Direct Urine Color Urine Appearance Urine pH Ur Specific [place] Urine Protein Urine Glucose (UA) Urine Ketones Ur Blood (Man) Urine Nitrate Urine Bilirubin Urine Urobilinogen Leukocyte Esterase Rfl 02/11/25 02/11/25 04:28 05:53 WBC RBC Hgb Hct MCV MCH MCHC RDW Plt Count MPV Immature Gran % (Auto) Neut % (Auto) Lymph % (Auto) [place] % (Auto) Eos % (Auto) Baso % (Auto) Lymph # (Auto) [place] # (Auto) Eos # (Auto) Baso # (Auto) Abs Immat Gran (auto) Absolute Neuts (auto) Absolute Nucleated RBC Nucleated RBC % PT INR APTT Sodium Potassium Chloride Carbon Dioxide Anion Gap BUN Creatinine Estim Creat Clear Calc Estimated GFR Glucose POC Capillary Glucose Calcium Total Bilirubin AST ALT Alkaline Phosphatase Troponin I Total Protein Albumin Triglycerides 195 H Cholesterol 224 H LDL Cholesterol Direct 62 HDL Direct 44 Urine Color Yellow Urine Appearance Clear Urine pH 7.0 Ur Specific [place] 1.021 Urine Protein Negative Urine Glucose (UA) Negative Urine Ketones Negative Ur Blood (Man) Negative Urine Nitrate Negative Urine Bilirubin Negative Urine Urobilinogen 1.0 Leukocyte Esterase Rfl Negative Impressions Head CT 02/10/25 14:07 IMPRESSION: 1. No acute intracranial process. 2. Age-related changes including mild diffuse volume loss and mild to moderate scattered white matter hypoattenuation consistent with chronic small vessel ischemic disease. Chest X-Ray 02/10/25 14:41 Impression: Mild CHF Head/Neck CTA 02/10/25 15:06 IMPRESSION: 1. Vertebral arteries are patent in the neck on both sides. No hemodynamically significant obstruction of the carotid arteries in the neck based on nascet criteria. 2. Major arteries [place] are patent. Dural venous sinuses are patent. EKG: Test Date: 2025-02-10 14:23:57 Measurements Intervals [place] Rate: 108 P: 54 WA: 205 QRS: 18 QRSD: 91 T: 44 QT: 320 QTc: 431 Interpretive Statements SINUS TACHYCARDIA ABNORMAL RHYTHM ECG No previous ECG available for comparison All imaging and EKGs personally reviewed and interpreted. And unless stated otherwise agree with radiologic and cardiology interpretation. Assessment and Plan Assessment and plan (1) Syncope: Qualifiers: Syncope type: unspecified Qualified Code(s): R55 - Syncope and collapse Code(s): R55 - Syncope and collapse Status: Acute (2) Dizziness: Code(s): R42 - Dizziness and giddiness Status: Acute (3) Parkinson's disease: Qualifiers: Dyskinesia presence: unspecified whether dyskinesia Fluctuating manifestations: unspecified whether manifestations fluctuate Qualified Code(s): G20.A1 - Parkinson's disease without dyskinesia, without mention of fluctuations Code(s): G20.A1 - Parkinson's disease without dyskinesia, without mention of fluctuations Status: Acute (4) Essential hypertension: Code(s): I10 - Essential (primary) hypertension Status: Acute (5) Generalized weakness: Code(s): R53.1 - Weakness Status: Acute (6) Mixed hyperlipidemia: Code(s): E78.2 - Mixed hyperlipidemia Status: Acute Plan Patient has had increasing right-sided tremor and had a episode of lightheadedness followed by brief episode of syncope. Given his history of Parkinson's he would be prone to orthostatic hypotension due to autonomic dysfunction. However due to the degree of weakness cannot accomplish orthostatic vital signs at this time. Will give patient 1 L IV fluid bolus and re-evaluate symptomatology. The given the patient's increased tremor and fact that he is being evaluated and presumed treated for Parkinson's as he has been already started on Sinemet increased tremor could be due to acute illness increased weakness or fluctuating dyskinesia however also included on differential would be a focal seizure and or acute CVA although seems less likely. Patient was already supposed to have outpatient MRI next week but given change in symptoms will order MRI of brain and brainstem with and without contrast to further evaluate. Will also obtain echocardiogram with bubble study. Will monitor neuro checks q.4 hours. Neurology was consulted from the ER. Will consult PT and OT for evaluation and treatment. As part of preventative measures given concern for possible stroke I checked a lipid panel in patient does have high cholesterol and triglycerides. Will initiate patient on Lipitor 40 mg p.o. daily. Will also start 81 mg aspirin daily. Patient denies history of known hypertension but patient has been hypertensive on prior visits within our system. He continues to be hypertensive at this time. Will start the patient on low-dose lisinopril. Patient has been admitted as observation status. MEDICAL DECISION MAKING NARRATIVE -Spoke with the ED provider in detail regarding patient's evaluation, workup and management -Patient seen and examined at bedside -Collaborated with patient's nurse at the bedside in detail and addressed all concerns -Labs, electrolytes, radiology, investigations and test results personally reviewed and interpreted unless otherwise specified -ED/Consult/Nursing/Ancilliary notes on the chart reviewed and appreciated -Spoke with patient at bedside and diagnosis and plan of care was discussed. All questions answered. Quality VTE Prophylaxis VTE prophylaxis: mechanical ordered (SCDs) and pharmacologic ordered Hospitalist [facility] Advance Care Plan I have confirmed that the patient's Advanced Care Plan is present, code status is documented, or surrogate decision maker is listed in patient medical record.: Yes Medication Reconciliation I have utilized all available resources to obtain, update and review the patients current medications (includes all prescriptions, OTC, herbals, cannabis, and nutritional supplements).: Yes
[2025-02-11 05:30] LABS: Cholesterol 224 mg/dL (0-200); HDL Direct 44 mg/dL; Triglycerides 195 mg/dL (<150)
[2025-02-11 05:59] LABS: Add Urine Microscopic? NO; Appearance Urine Clear (Clear); Glucose Urine UA Negative (Negative); Leukocyte Esterase Ur Negative LEU/UL (Negative); Nitrate Urine Negative (Negative); Specific Grav Ur 1.021 (1.001-1.035)
--- NOTE | 2025-02-11 08:35 | P.PNIM_ITS ---
Progress Note: A&P Assessment and Plan (1) Syncope: Qualifiers: Syncope type: unspecified Qualified Code(s): R55 - Syncope and collapse Code(s): R55 - Syncope and collapse Status: Acute Assessment and Plan: - CT head no acute process - unable to obtain orthostatic vitals due to profound weakness - CXR with mild CHF - appears euvolemic - troponin I negative x2, BNP negative - EKG with sinus tachycardia, no acute ST changes - echo with normal EF, G1DD - may be autonomic dysfunction related to PD - cardio consulted - recommended event monitor on discharge. No further recs - neuro consulted - appreciate recs (2) Tremor: Code(s): R25.1 - Tremor, unspecified Status: Acute Assessment and Plan: - family reported worsening R-sided tremor with syncope - CT head no acute process - CTA head and neck no LVO - increased tremor could be due to acute illness or fluctuating dyskinesia in setting of suspected PD however also included on differential would be a focal seizure and or acute CVA although seems less likely. - MRI brain with no acute abnormality - neuro checks q4H - neurology consulted, appreciate recs - PT/OT - ASA, statin (3) Parkinson's disease: Qualifiers: Dyskinesia presence: unspecified whether dyskinesia Fluctuating manifestations: unspecified whether manifestations fluctuate Qualified Code(s): G20.A1 - Parkinson's disease without dyskinesia, without mention of fluctuations Code(s): G20.A1 - Parkinson's disease without dyskinesia, without mention of fluctuations Status: Acute Assessment and Plan: - recently seen by neurology at [place] and started on Sinemet. Was planned to have MRI brain as outpatient next week. - continue Sinemet (4) Essential hypertension: Code(s): I10 - Essential (primary) hypertension Status: Acute Assessment and Plan: - BP trend persistently elevated - started on lisinopril per admitting team, monitor response (5) Generalized weakness: Code(s): R53.1 - Weakness Status: Acute Assessment and Plan: - PT/OT recommended CARLITOS, care coordination following (6) Mixed hyperlipidemia: Code(s): E78.2 - Mixed hyperlipidemia Status: Acute Assessment and Plan: - continue statin Plan DVT prophylaxis: SCDs Dispo: TBD Code status: full code Subjective Date/time seen: 02/11/25 08:35 Interval history: Patient seen and examined up in chair with family present. Patient denies any further dizziness. Case discussed with neurology radiation therapy technologist who will consult. Review of Systems Review of Systems: All systems reviewed & are unremarkable except as noted in HPI and below Exam Narrative: General: NAD Eyes: EOMI ENT: neck supple Cardiovascular: Regular rate and rhythm Respiratory: Clear to auscultation, respirations even and unlabored on RA Gastrointestinal: Soft, non tender Genitourinary: no suprapubic tenderness Musculoskeletal: No edema Skin: warm, dry Neuro: Alert. Severe RUE intention tremor. Psych: Mood appropriate Objective Data Vital Signs Vital Signs: Vital Signs - 24 hr 02/10/25 13:41 02/10/25 14:22 02/10/25 14:24 Temperature 97.1 F L 98.3 F 98.3 F Pulse Rate 89 108 H 108 H Respiratory Rate 18 16 19 Blood Pressure 193/81 H 175/97 H 175/97 H Pulse Oximetry 98 98 97 Oxygen Delivery Room Air Room Air 02/10/25 15:46 02/10/25 15:53 02/10/25 16:01 Temperature Pulse Rate 102 H 104 H 104 H Respiratory Rate 23 H 23 H 23 H Blood Pressure 159/96 H 144/94 H 158/96 H Pulse Oximetry 99 98 99 Oxygen Delivery 02/10/25 16:16 02/10/25 16:31 02/10/25 16:45 Temperature Pulse Rate 103 H 103 H 99 Respiratory Rate 19 20 20 Blood Pressure 143/89 H 146/94 H Pulse Oximetry 98 98 98 Oxygen Delivery 02/10/25 16:46 02/10/25 17:54 02/10/25 18:32 Temperature 97.5 F L Pulse Rate 101 H 102 H Respiratory Rate 20 18 Blood Pressure 150/93 H 151/83 H Pulse Oximetry 98 97 Oxygen Delivery Room Air 02/10/25 19:52 02/10/25 20:00 02/11/25 00:00 Temperature 98.4 F Pulse Rate 99 104 H 81 Respiratory Rate 20 Blood Pressure 152/94 H Pulse Oximetry 97 Oxygen Delivery 02/11/25 04:00 02/11/25 05:05 Temperature 97.0 F L Pulse Rate 78 90 Respiratory Rate 14 Blood Pressure 159/93 H Pulse Oximetry 98 Oxygen Delivery Intake/Output Intake/Output: Intake & Output 02/08/25 02/09/25 02/10/25 02/11/25 23:59 23:59 23:59 23:59 Intake Total 240 360 Output Total 150 Balance 240 210 Meds/Results Medications: Active Medications Generic Name Dose Route Start Last Admin Trade Name Sixto PRN Reason Stop Dose Admin Aspirin 81 mg 02/11/25 09:00 Aspirin 81 Mg Enteric Tablet PO QAM ADRIEN Atorvastatin Calcium 40 mg 02/11/25 09:00 Atorvastatin 40 Mg Tablet PO DAILY ADRIEN Carbidopa/Levodopa 1 tablet 02/10/25 21:25 02/10/25 22:34 Carbidopa/Levodopa 25/100 Mg Tablet PO 1 tablet TID ADRIEN Administration Lisinopril 10 mg 02/11/25 09:00 Lisinopril 10 Mg Tablet PO DAILY ADRIEN Perflutren Lipid Microsphere 0 ml 02/10/25 21: Perflutren Lipid Microspheres 1.5 Ml Vial Diluted To 10 Ml Total Volume IV PUSH 02/13/25 21:25 ONCE PRN adequate visualization Protocol Radiology Results: ITS Impressions Head CT 02/10/25 14:07 IMPRESSION: 1. No acute intracranial process. 2. Age-related changes including mild diffuse volume loss and mild to moderate scattered white matter hypoattenuation consistent with chronic small vessel ischemic disease. Chest X-Ray 02/10/25 14:41 Impression: Mild CHF Head/Neck CTA 02/10/25 15:06 IMPRESSION: 1. Vertebral arteries are patent in the neck on both sides. No hemodynamically significant obstruction of the carotid arteries in the neck based on nascet criteria. 2. Major arteries of [place] are patent. Dural venous sinuses are patent. Labs Labs: Laboratory Results - last 24 hr 02/10/25 02/10/25 02/10/25 13:55 14:07 14:11 WBC 9.2 RBC 4.71 Hgb 13.4 L Hct 41.7 L MCV 88.5 MCH 28.5 MCHC 32.1 RDW 13.0 Plt Count 167 MPV 10.7 H Immature Gran % (Auto) 0.2 Neut % (Auto) 61.5 Lymph % (Auto) 31.0 [place] % (Auto) 7.1 Eos % (Auto) 0.1 Baso % (Auto) 0.1 L Lymph # (Auto) 2.84 [place] # (Auto) 0.7 H Eos # (Auto) 0.0 Baso # (Auto) 0.0 Abs Immat Gran (auto) 0.02 Absolute Neuts (auto) 5.6 Absolute Nucleated RBC 0.000 Nucleated RBC % 0.0 PT 14.1 INR 1.1 APTT 28.9 Sodium 138 Potassium 3.5 Chloride 103 Carbon Dioxide 25 Anion Gap 10 BUN 11 D Creatinine 0.83 0.90 Estim Creat Clear Calc 79 73 Estimated GFR > 60 > 60 Glucose 132 H POC Capillary Glucose 128 H Calcium 9.9 Total Bilirubin 1.3 AST 28 ALT 10 Alkaline Phosphatase 52 Troponin I < 0.012 Total Protein 8.7 H Albumin 4.7 Triglycerides Cholesterol LDL Cholesterol Direct HDL Direct Urine Color Urine Appearance Urine pH Ur Specific [place] Urine Protein Urine Glucose (UA) Urine Ketones Ur Blood (Man) Urine Nitrate Urine Bilirubin Urine Urobilinogen Leukocyte Esterase Rfl 02/11/25 02/11/25 04:28 05:53 WBC RBC Hgb Hct MCV MCH MCHC RDW Plt Count MPV Immature Gran % (Auto) Neut % (Auto) Lymph % (Auto) [place] % (Auto) Eos % (Auto) Baso % (Auto) Lymph # (Auto) [place] # (Auto) Eos # (Auto) Baso # (Auto) Abs Immat Gran (auto) Absolute Neuts (auto) Absolute Nucleated RBC Nucleated RBC % PT INR APTT Sodium Potassium Chloride Carbon Dioxide Anion Gap BUN Creatinine Estim Creat Clear Calc Estimated GFR Glucose POC Capillary Glucose Calcium Total Bilirubin AST ALT Alkaline Phosphatase Troponin I Total Protein Albumin Triglycerides 195 H Cholesterol 224 H LDL Cholesterol Direct 62 HDL Direct 44 Urine Color Yellow Urine Appearance Clear Urine pH 7.0 Ur Specific [place] 1.021 Urine Protein Negative Urine Glucose (UA) Negative Urine Ketones Negative Ur Blood (Man) Negative Urine Nitrate Negative Urine Bilirubin Negative Urine Urobilinogen 1.0 Leukocyte Esterase Rfl Negative Quality VTE Prophylaxis VTE prophylaxis: mechanical ordered (SCDs) and pharmacologic ordered
[2025-02-11] MEDS: CARBIDOPA/LEVODOPA 25/100 MG TABLET 1 TABLET PO ×2 (08:59→14:56)
[2025-02-11] MEDS: ASPIRIN 81 MG ENTERIC TABLET PO (08:59)
[2025-02-11] MEDS: ATORVASTATIN 40 MG TABLET PO (08:59)
[2025-02-11 09:19] LABS: NT Pro B Type Natriuretic Pept 40 pg/mL (19.9-100); Troponin I < 0.012 ng/mL (0.000-0.034)
--- NOTE | 2025-02-11 12:01 | P.CONCA_ITS ---
Assessment and Plan Assessment and plan (1) Dizziness: Code(s): R42 - Dizziness and giddiness Status: Acute (2) Essential hypertension: Code(s): I10 - Essential (primary) hypertension Status: Acute (3) Mixed hyperlipidemia: Code(s): E78.2 - Mixed hyperlipidemia Status: Acute (4) Parkinson's disease: Qualifiers: Dyskinesia presence: unspecified whether dyskinesia Fluctuating manifestations: unspecified whether manifestations fluctuate Qualified Code(s): G20.A1 - Parkinson's disease without dyskinesia, without mention of fluctuations Code(s): G20.A1 - Parkinson's disease without dyskinesia, without mention of fluctuations Status: Acute Plan Assessment: Dizziness Hypertension Hyperlipidemia Parkinson's disease Plan: -Troponin is negative. EKG/telemetry did not show any tachy/Isaiah arrhythmias. CTA head and neck without any hemodynamically significant obstruction of carotid arteries or other head and neck arteries. TTE shows normal LVEF and no significant valvular pathology. Given negative cardiac workup thus far, please evaluate for noncardiac causes of dizziness. -Tachy/Isaiah arrhythmia is still possible and I recommend an event monitor at discharge. -Follow-up with cardiology in 1 month with results of event monitor. Thank you for allowing us to participate in the care of this patient. Cardiology will sign off. Please call us with any questions. History of Present Illness History of Present Illness Consult date/time: 02/11/25 12:01 Reason For Visit: SYNCOPE,[email or web address],[email or web address] Narrative: 69-year-old male with history of Parkinson's disease, hypertension, hyperlipidemia presents with chief complaints of dizziness. Patient is accompanied by his provided most of the history. Patient was eating yesterday when he complained of dizziness to his . His noticed patient was rolling his eyes and could not speak. There were no jerking movements other than his right side a tremor. There was no bowel or bladder incontinence. He does not think he had loss of consciousness and states that he remembers the episode. Patient's son helped transfer the patient to the ER. The entire episode lasted for about 3-5 minutes. When patient arrived in the ER his symptoms had resolved. Patient has been having tremors due to Parkinson's disease for a few years but it has gotten worse over the past few months. He also has a shuffling gait and slowed speech due to Parkinson's disease. He is being evaluated by Neurology as outpatient through [facility] in [facility] and was started on Sinemet with some improvement in symptoms. He has an outpatient MRI brain scheduled for February 20. MRI was completed today with results pending. EKG shows sinus tachycardia. Telemetry shows sinus tachycardia with occasional PVCs. TTE shows normal LV function with no significant valvular pathology. Cardiology is consulted for further recommendations. Patient denies any chest pain, leg swelling, recent weight gain, orthopnea, PND, palpitations. Workup: Hemoglobin: 13.4 Troponin: < 0.012 X 2 Creatinine: 0.83 EKG: Sinus tachycardia, heart rate 108 TTE: Normal LV EF, grade 1 diastolic dysfunction, no significant valvular pathology Chest x-ray: Mild pulmonary venous congestion CT head: 1. No acute intracranial process. 2. Age-related changes including mild diffuse volume loss and mild to moderate scattered white matter hypoattenuation consistent with chronic small vessel ischemic disease. CTA head and neck: 1. Vertebral arteries are patent in the neck on both sides. No hemodynamically significant obstruction of the carotid arteries in the neck based on nascet criteria. 2. Major arteries of [place] are patent. Dural venous sinuses are patent. Review of Systems 2 Review of Systems: A complete review of systems was performed and pertinent positives are reported in the HPI. [facility] Past Medical History Medical History (Updated 02/11/25 @ 08:37 by VENKATA Cortez) Essential hypertension Parkinson's disease Surgical History Surgical History (Updated 02/11/25 @ 04:01 by Queta Dodge DO) H/O bilateral inguinal hernia repair Family History Family History Father , age 78 Cerebrovascular accident Mother , age 79. No problems noted. Social History Social History (Updated 02/11/25 @ 08:19 by Queta Dodge DO) Social History: The patient is been to his current for 2 years. He has 9 children. He is a lifelong nonsmoker and does not drink alcohol or use illicit substances. 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 Code status: Full code Surrogate decision maker: Smoking status: Never smoker Alcohol intake: never Substance use: never Lack of Transportation: No Lack of Food: Never True Current Housing: I Have Housing Concerned About Future Housing: No Difficulty Paying Gas/Electric Bills: No Difficulty Paying for Meds: No Currently Unemployed: No Education: Decline to Answer Difficulty w/ Childcare or Family Care: No Living arrangements: with family Occupation/Education: retired Additional occupation/education comments: Railroad Gender identity (if verbalized by the patient): Male Sexual Orientation (if Verbalized by the Patient): Straight or Heterosexual Spiritual care concerns: No Meds Home Medications and Allergies Home Medications ?Medication ?Instructions ?Recorded ?Confirmed ?Type carbidopa 25 mg-levodopa 100 mg 1 tablet PO TID 02/10/25 History tablet Allergies Allergy/AdvReac Type Severity Reaction Status Date / Time No Known Allergies Allergy Verified 02/10/25 18:18 Vital Signs Vital Signs - 24 hr 02/10/25 13:41 02/10/25 14:22 02/10/25 14:24 Temperature 36.2 C L 36.8 C 36.8 C Pulse Rate 89 108 H 108 H Respiratory Rate 18 16 19 Blood Pressure 193/81 H 175/97 H 175/97 H Pulse Oximetry 98 98 97 Oxygen Delivery Room Air Room Air 02/10/25 15:46 02/10/25 15:53 02/10/25 16:01 Temperature Pulse Rate 102 H 104 H 104 H Respiratory Rate 23 H 23 H 23 H Blood Pressure 159/96 H 144/94 H 158/96 H Pulse Oximetry 99 98 99 Oxygen Delivery 02/10/25 16:16 02/10/25 16:31 02/10/25 16:45 Temperature Pulse Rate 103 H 103 H 99 Respiratory Rate 19 20 20 Blood Pressure 143/89 H 146/94 H Pulse Oximetry 98 98 98 Oxygen Delivery 02/10/25 16:46 02/10/25 17:54 02/10/25 18:32 Temperature 36.4 C L Pulse Rate 101 H 102 H Respiratory Rate 20 18 Blood Pressure 150/93 H 151/83 H Pulse Oximetry 98 97 Oxygen Delivery Room Air 02/10/25 19:52 02/10/25 20:00 02/11/25 00:00 Temperature 36.9 C Pulse Rate 99 104 H 81 Respiratory Rate 20 Blood Pressure 152/94 H Pulse Oximetry 97 Oxygen Delivery 02/11/25 04:00 02/11/25 05:05 02/11/25 08:00 Temperature 36.1 C L Pulse Rate 78 90 82 Respiratory Rate 14 Blood Pressure 159/93 H Pulse Oximetry 98 Oxygen Delivery 02/11/25 09:00 Temperature Pulse Rate Respiratory Rate Blood Pressure Pulse Oximetry Oxygen Delivery Room Air Exam 2 Narrative: General: Alert oriented x3, no acute distress Neck: Supple, no JVD Chest: Bilaterally clear to auscultation, no rales or rhonchi Cardiac: S1, S2 +, regular rate, regular rhythm, no murmurs or rubs Extremities: No pedal edema, no skin rash Neurologic: Alert and oriented x3, no focal neurological deficits Results Labs and Meds 02/10/25 14:07 02/10/25 14:11 Lab results: Cardiac Enzymes 02/10/25 02/11/25 Range/Units 14:07 04:28 AST 28 (17-59) U/L Troponin I < 0.012 < 0.012 (0.000-0.034) ng/mL Coagulation 02/10/25 Range/Units 14:07 PT 14.1 (11.1-14.7) Seconds APTT 28.9 (22.3-36.8) Seconds Lipids 02/11/25 Range/Units 04:28 Triglycerides 195 H (<150) mg/dL Cholesterol 224 H (0-200) mg/dL CBC 02/10/25 Range/Units 14:07 WBC 9.2 (4.5-10.0) K/mm3 RBC 4.71 (4.6-6.20) M/mm3 Hgb 13.4 L (14.0-18.0) g/dL Hct 41.7 L (42.0-52.0) % Plt Count 167 (150-375) k/mm3 Lymph # (Auto) 2.84 (0.9-3.2) K/mm3 [place] # (Auto) 0.7 H (0.1-0.6) K/mm3 Eos # (Auto) 0.0 (0-0.3) K/mm3 Baso # (Auto) 0.0 (0.0-0.1) K/mm3 Comprehensive Metabolic Panel 02/10/25 02/10/25 Range/Units 14:07 14:11 Sodium 138 (137-145) mmol/L Potassium 3.5 (3.4-5.0) mmol/L Chloride 103 (98-107) mmol/L Carbon Dioxide 25 (22-30) mmol/L BUN 11 D (9-20) mg/dL Creatinine 0.83 0.90 (0.7-1.3) mg/dL Glucose 132 H (65-110) mg/dL Calcium 9.9 (8.4-10.2) mg/dL AST 28 (17-59) U/L ALT 10 (6-50) U/L Alkaline Phosphatase 52 (38-126) U/L Total Protein 8.7 H (6.3-8.2) g/dL Albumin 4.7 (3.5-5.1) g/dL Intake and Output 02/10/25 02/11/25 02/11/25 23:59 07:59 15:59 Intake Total 240 360 140 Output Total 150 Balance 240 210 140 Intake: Oral 240 360 140 Output: Urine 150 Other: # Incontinent Voids 1 Number of Bowel Movements Today 1 Patient Weight 02/11/25 23:59 Weight 79.5 kg
[2025-02-12] VITALS: PULSE 73
[2025-02-12 04:00] VITALS: PULSE 70
[2025-02-12 04:31] VITALS: BP 122/78; PULSE 76; RESP 14; TEMP 36.4; O2SAT 100
[2025-02-12 08:00] VITALS: PULSE 119
--- NOTE | 2025-02-12 08:15 | P.PNIM_ITS ---
Progress Note: A&P Assessment and Plan (1) Syncope: Qualifiers: Syncope type: unspecified Qualified Code(s): R55 - Syncope and collapse Code(s): R55 - Syncope and collapse Status: Acute Assessment and Plan: - CT head no acute process - unable to obtain orthostatic vitals due to profound weakness - CXR with mild CHF - appears euvolemic - troponin I negative x2, BNP negative - EKG with sinus tachycardia, no acute ST changes - echo with normal EF, G1DD - may be autonomic dysfunction related to PD - cardio consulted - recommended event monitor on discharge. No further recs - neuro consulted - appreciate recs (2) Tremor: Code(s): R25.1 - Tremor, unspecified Status: Acute Assessment and Plan: - family reported worsening R-sided tremor with syncope - CT head no acute process - CTA head and neck no LVO - increased tremor could be due to acute illness or fluctuating dyskinesia in setting of suspected PD however also included on differential would be a focal seizure and or acute CVA although seems less likely. - MRI brain with no acute abnormality - neuro checks q4H - neurology consulted, appreciate recs - PT/OT - ASA, statin (3) Parkinson's disease: Qualifiers: Dyskinesia presence: unspecified whether dyskinesia Fluctuating manifestations: unspecified whether manifestations fluctuate Qualified Code(s): G20.A1 - Parkinson's disease without dyskinesia, without mention of fluctuations Code(s): G20.A1 - Parkinson's disease without dyskinesia, without mention of fluctuations Status: Acute Assessment and Plan: - recently seen by neurology at [place] and started on Sinemet. Was planned to have MRI brain as outpatient next week. - continue Sinemet (4) Essential hypertension: Code(s): I10 - Essential (primary) hypertension Status: Acute Assessment and Plan: - BP trend persistently elevated - started on lisinopril per admitting team, monitor response (5) Generalized weakness: Code(s): R53.1 - Weakness Status: Acute Assessment and Plan: - PT/OT recommended CARLITOS, care coordination following (6) Mixed hyperlipidemia: Code(s): E78.2 - Mixed hyperlipidemia Status: Acute Assessment and Plan: - continue statin Plan DVT prophylaxis: SCDs Dispo: TBD Code status: full code Subjective Date/time seen: 02/12/25 08:15 Interval history: Patient seen and examined up in chair with family present. Patient denies any further dizziness. Case discussed with neurology liquefaction and regasification helper who will consult. Review of Systems Review of Systems: All systems reviewed & are unremarkable except as noted in HPI and below Exam Narrative: General: NAD Eyes: EOMI ENT: neck supple Cardiovascular: Regular rate and rhythm Respiratory: Clear to auscultation, respirations even and unlabored on RA Gastrointestinal: Soft, non tender Genitourinary: no suprapubic tenderness Musculoskeletal: No edema Skin: warm, dry Neuro: Alert. Severe RUE intention tremor. Psych: Mood appropriate Objective Data Vital Signs Vital Signs: Vital Signs - 24 hr 02/11/25 09:00 02/11/25 13:18 02/11/25 13:31 Temperature Pulse Rate Respiratory Rate Blood Pressure Pulse Oximetry Oxygen Delivery Room Air Room Air Room Air 02/11/25 14:00 02/11/25 16:00 02/11/25 16:50 Temperature 99.1 F Pulse Rate 98 102 H Respiratory Rate 20 Blood Pressure 120/84 120/75 Pulse Oximetry 99 Oxygen Delivery 02/11/25 16:50 02/11/25 16:50 02/11/25 19:45 Temperature 98.0 F Pulse Rate 97 Respiratory Rate 20 Blood Pressure 117/65 134/81 110/73 Pulse Oximetry 97 Oxygen Delivery 02/11/25 20:00 02/11/25 20:00 02/12/25 00:00 Temperature Pulse Rate 95 73 Respiratory Rate Blood Pressure Pulse Oximetry Oxygen Delivery Room Air 02/12/25 04:00 02/12/25 04:31 Temperature 97.6 F Pulse Rate 70 76 Respiratory Rate 14 Blood Pressure 122/78 Pulse Oximetry 100 Oxygen Delivery Intake/Output Intake/Output: Intake & Output 02/09/25 02/10/25 02/11/25 02/12/25 23:59 23:59 23:59 23:59 Intake Total 240 1480 550 Output Total 150 Balance 240 1330 550 Meds/Results Medications: Active Medications Generic Name Dose Route Start Last Admin Trade Name Freq PRN Reason Stop Dose Admin Aspirin 81 mg 02/11/25 09:00 02/11/25 08:59 Aspirin 81 Mg Enteric Tablet PO 81 mg QAM ADRIEN Administration Atorvastatin Calcium 40 mg 02/11/25 09:00 02/11/25 08:59 Atorvastatin 40 Mg Tablet PO 40 mg DAILY ADRIEN Administration Carbidopa/Levodopa 1 tablet 02/10/25 21:25 02/11/25 18:24 Carbidopa/Levodopa 25/100 Mg Tablet PO Not Given TID ADRIEN Lisinopril 10 mg 02/11/25 09:00 02/11/25 08:59 Lisinopril 10 Mg Tablet PO 10 mg DAILY ADRIEN Administration Perflutren Lipid Microsphere 0 ml 02/10/25 21:25 Perflutren Lipid Microspheres 1.5 Ml Vial Diluted To 10 Ml Total Volume IV PUSH 02/13/25 21:25 ONCE PRN adequate visualization Protocol Radiology Results: ITS Impressions Head CT 02/10/25 14:07 IMPRESSION: 1. No acute intracranial process. 2. Age-related changes including mild diffuse volume loss and mild to moderate scattered white matter hypoattenuation consistent with chronic small vessel ischemic disease. Chest X-Ray 02/10/25 14:41 Impression: Mild CHF Head/Neck CTA 02/10/25 15:06 IMPRESSION: 1. Vertebral arteries are patent in the neck on both sides. No hemodynamically significant obstruction of the carotid arteries in the neck based on nascet criteria. 2. Major arteries of [place] are patent. Dural venous sinuses are patent. Brain MRI 02/11/25 12:50 IMPRESSION: 1. No acute intracranial abnormality. Labs Labs: Laboratory Results - last 24 hr 02/11/25 04:28 Troponin I < 0.012 NT-Pro-B Natriuret Pep 40 Triglycerides 195 H Cholesterol 224 H LDL Cholesterol Direct 62 HDL Direct 44 Quality VTE Prophylaxis VTE prophylaxis: mechanical ordered (SCDs) and pharmacologic ordered
[2025-02-12] MEDS: ASPIRIN 81 MG ENTERIC TABLET PO (08:34)
[2025-02-12] MEDS: ATORVASTATIN 40 MG TABLET PO (08:35)
[2025-02-12] MEDS: CARBIDOPA/LEVODOPA 25/100 MG TABLET 1 TABLET PO (08:35)
[2025-02-12 11:00] VITALS: PULSE 92
--- NOTE | 2025-02-12 11:08 | WPDNEURCNPN ---
Assessment and Plan Assessment and plan (1) Syncope: Qualifiers: Syncope type: unspecified Qualified Code(s): R55 - Syncope and collapse Code(s): R55 - Syncope and collapse Status: Acute (2) Dizziness: Code(s): R42 - Dizziness and giddiness Status: Acute (3) Parkinson's disease: Qualifiers: Dyskinesia presence: unspecified whether dyskinesia Fluctuating manifestations: unspecified whether manifestations fluctuate Qualified Code(s): G20.A1 - Parkinson's disease without dyskinesia, without mention of fluctuations Code(s): G20.A1 - Parkinson's disease without dyskinesia, without mention of fluctuations Status: Acute (4) Essential hypertension: Code(s): I10 - Essential (primary) hypertension Status: Acute Plan According to the patient's he did not have any further recurrence of symptoms once he arrived in the hospital and is back to his normal self. He follows with a neurologist regarding Parkinson disease and he has follow-up appointment with them. Consult date: 02/12/25 HPI: Edgard Culp is a 69 year old male With history of Parkinson's disease currently on Sinemet under care of a neurologist at [facility] presented to the hospital with the history of fall and dizziness. He apparently also had a spell where he passed out. However he is doing much better now is according to his he had no more recurrence of the symptoms. Patient's was present the time of the evaluation. I noted the patient has undergone several investigations including a CT scan of the brain and a CT angiogram of the head and neck as well as an MRI of the brain which did not show any significant abnormalities. Patient has been noted to have significant tremor of the right hand as well as stiffness. He has been started on Sinemet recently and that has helped however he be followed up by the neurologist at [facility] for further adjustment in the doses of medications. No other significant symptoms were reported at this time. Review of Systems Review of Systems: All systems reviewed & are unremarkable except as noted in HPI and below PMFSH Past Medical History Medical History Essential hypertension Parkinson's disease Surgical History Surgical History H/O bilateral inguinal hernia repair Family History Family History Father , age 78 Cerebrovascular accident Mother , age 79. No problems noted. Social History Social History Social History: The patient is been to his current for 2 years. He has 9 children. He is a lifelong nonsmoker and does not drink alcohol or use illicit substances. 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 Code status: Full code Surrogate decision maker: Smoking status: Never smoker Alcohol intake: never Substance use: never Lack of Transportation: No Lack of Food: Never True Current Housing: I Have Housing Concerned About Future Housing: No Difficulty Paying Gas/Electric Bills: No Difficulty Paying for Meds: No Currently Unemployed: No Education: Decline to Answer Difficulty w/ Childcare or Family Care: No Living arrangements: with family Occupation/Education: retired Additional occupation/education comments: [employer] Gender identity (if verbalized by the patient): Male Sexual Orientation (if Verbalized by the Patient): Straight or Heterosexual Spiritual care concerns: No Meds Home Medications and Allergies Home Medications ?Medication ?Instructions ?Recorded ?Confirmed ?Type carbidopa 25 mg-levodopa 100 mg 1 tablet PO TID 02/10/25 02/10/25 History tablet amlodipine 2.5 mg tablet (Norvasc) 2.5 mg PO DAILY #30 tabs 02/12/25 Rx Allergies Allergy/AdvReac Type Severity Reaction Status Date / Time No Known Allergies Allergy Verified 02/10/25 18:18 Vital Signs Vital Signs - 24 hr 02/11/25 13:18 02/11/25 13:31 02/11/25 14:00 Temperature 99.1 F Pulse Rate 98 Respiratory Rate 20 Blood Pressure 120/84 Pulse Oximetry 99 Oxygen Delivery Room Air Room Air 02/11/25 16:00 02/11/25 16:50 02/11/25 16:50 Temperature Pulse Rate 102 H Respiratory Rate Blood Pressure 120/75 117/65 Pulse Oximetry Oxygen Delivery 02/11/25 16:50 02/11/25 19:45 02/11/25 20:00 Temperature 98.0 F Pulse Rate 97 Respiratory Rate 20 Blood Pressure 134/81 110/73 Pulse Oximetry 97 Oxygen Delivery Room Air 02/11/25 20:00 02/12/25 00:00 02/12/25 04:00 Temperature Pulse Rate 95 73 70 Respiratory Rate Blood Pressure Pulse Oximetry Oxygen Delivery 02/12/25 04:31 02/12/25 08:00 02/12/25 11:00 Temperature 97.6 F Pulse Rate 76 119 H 92 Respiratory Rate 14 Blood Pressure 122/78 Pulse Oximetry 100 Oxygen Delivery Exam Const: General: cooperative and no acute distress HENMT: Head: atraumatic Eyes: Alignment and Position: alignment normal and position normal EOM: EOMs intact bilaterally Neck: Neck: normal visual inspection and supple Resp: Effort & Inspection: normal respiratory effort Skin: General skin exam: normal color Neuro: Cranial nerves: Yes CN's II-XII intact bilaterally, Yes facial symmetry and Yes Midline tongue present Coordination: [id number] test normal Other: Sensory exam grossly intact. Significant rigidity and tremor of the right upper limb were noted. There is loss of rapid alternating movement of the right upper and lower limb. Gait could not be tested this time. Psych: Appearance: well kempt Mental Status: mental status grossly normal Results Labs 02/10/25 14:07 02/10/25 14:11 Imaging Attestation: I personally reviewed and interpreted this imaging study as follows: ( MRI of the brain And CT angiogram of the head and neck) My impression: MRI shows mild chronic ischemic changes. No acute abnormalities identified. CT angiogram of the head and neck did not show any large vessel occlusion.
--- NOTE | 2025-02-12 11:18 | P.DS_ITS ---
DS: Admitting Diagnosis Discharge Date 02/12/25 Admitting Diagnosis near syncope DS: Discharge Diagnosis Discharge Diagnosis (1) Syncope: Qualifiers: Syncope type: unspecified Qualified Code(s): R55 - Syncope and collapse Code(s): R55 - Syncope and collapse Status: Acute (2) Tremor: Code(s): R25.1 - Tremor, unspecified Status: Acute (3) Parkinson's disease: Qualifiers: Dyskinesia presence: unspecified whether dyskinesia Fluctuating daniel festations: unspecified whether manifestations fluctuate Qualified Code(s): G20.A1 - Parkinson's disease without dyskinesia, without mention of fluctuations Code(s): G20.A1 - Parkinson's disease without dyskinesia, without mention of fluctuations Status: Acute (4) Essential hypertension: Code(s): I10 - Essential (primary) hypertension Status: Acute (5) Generalized weakness: Code(s): R53.1 - Weakness Status: Acute (6) Mixed hyperlipidemia: Code(s): E78.2 - Mixed hyperlipidemia Status: Acute DS: Summary Hospital Course Reason for hospitalization: - near syncope Hospital Course: The patient is a 69-year-old male with a history of Parkinson's disease, essential hypertension, and mixed hyperlipidemia who was admitted for evaluation of increased right-sided tremor, dizziness, and a brief near syncopal episode. On admission, he was noted to have significant right-sided tremor and rigidity, shuffling gait, and slowed speech, with no evidence of acute confusion. This appeared to be near his baseline. Initial workup included laboratory studies, head CT, CTA head and neck, and MRI brain, all of which were negative for acute pathology. Cardiac evaluation, including EKG, telemetry, troponins, and transthoracic echocardiogram, was unremarkable for arrhythmia or structural heart disease. Orthostatic vital signs were negative during hospitalization. Neurology and cardiology were consulted; both agreed that the most likely etiology for his symptoms was autonomic dysfunction related to Parkinson's disease, rather than seizure, stroke, or primary cardiac event. The patient?s symptoms improved with supportive care, and he returned to his neurological baseline prior to discharge. PT/OT recommended acute rehabilitation, but the family declined; arrangements were made for home health care services. The patient was started on amlodipine 2.5 mg daily for hypertension and instructed to monitor his blood pressures at home and follow up with his primary care provider. The patient and family were also encouraged to follow up with cardiology to arrange for an outpatient cardiac event monitor. He was discharged home in stable condition. Time Spent with Patient Time attestation: Total time spent providing and/or coordinating discharge services: Exam Narrative: General: NAD Eyes: EOMI ENT: neck supple Cardiovascular: Regular rate and rhythm Respiratory: Clear to auscultation, respirations even and unlabored on RA Gastrointestinal: Soft, non tender Genitourinary: no suprapubic tenderness Musculoskeletal: No edema Skin: warm, dry Neuro: Alert. Severe RUE intention tremor. Psych: Mood appropriate DS: Data Data Completed and Pending Completed studies during hospitalization: ITS Impressions Head CT 02/10/25 14:07 IMPRESSION: 1. No acute intracranial process. 2. Age-related changes including mild diffuse volume loss and mild to moderate scattered white matter hypoattenuation consistent with chronic small vessel ischemic disease. Chest X-Ray 02/10/25 14:41 Impression: Mild CHF Head/Neck CTA 02/10/25 15:06 IMPRESSION: 1. Vertebral arteries are patent in the neck on both sides. No hemodynamically significant obstruction of the carotid arteries in the neck based on nascet criteria. 2. Major arteries of [place] are patent. Dural venous sinuses are patent. Brain MRI 02/11/25 12:50 IMPRESSION: 1. No acute intracranial abnormality. Discharge Plan Discharge Attending physician on discharge: Dean Neff Consulting providers: Benton Lynn; Mirta Delcid; Agatha Tabares Discharging Clinician: Mirta Delcid Anticipated Discharge Date/Time: 02/12/25 11:11 Patient Disposition: Home with Home Health Service Activity: unlimited Diet: regular Discharge Instructions: Diagnosis: You were admitted for evaluation of near syncope (almost fainting). You have a history of Parkinson?s disease. During your stay, you underwent an MRI of the brain, CT and CTA of the head and neck, and an echocardiogram. All of these tests were normal. Orthostatic Hypotension Precautions: People with Parkinson?s disease are at increased risk for orthostatic hypotension (a drop in blood pressure when standing up), which can cause dizziness or fainting. To help prevent this: * Change positions slowly:?When moving from lying down to sitting or from sitting to standing, do so slowly. Sit on the edge of the bed for a few minutes before standing. * Stay hydrated:?Drink plenty of fluids unless you have been told to restrict fluids for another reason. * Increase salt intake:?If not contraindicated, a moderate increase in salt intake may help. Discuss with your provider if this is appropriate for you. * Elevate the head of your bed:?Sleeping with the head of the bed slightly elevated (about 30 degrees) can help reduce morning drops in blood pressure. * Wear compression stockings:?These can help prevent blood from pooling in your legs. * Avoid prolonged standing:?Take breaks and sit down if you feel lightheaded. * Avoid hot environments:?Heat can worsen low blood pressure. * Monitor your blood pressure:?If you have a home blood pressure monitor, check your blood pressure when lying down and after standing for 1 and 3 minutes. Keep a log to share with your provider. Medications: * Take all medications as prescribed. Some medications for Parkinson?s can worsen orthostatic hypotension. Do not stop any medications without discussing with your provider. Follow-Up: * Cardiology:?Please schedule a follow-up appointment with cardiology to have an event monitor placed. This will help further evaluate your heart rhythm and identify any possible causes for your symptoms. * Primary Care/Neurology:?Continue regular follow-up for management of Parkinson?s disease and any other medical conditions. * Care coordination will call you tomorrow to arrange home health care. When to Seek Immediate Medical Attention: * Fainting or loss of consciousness * Chest pain, palpitations, or shortness of breath * Severe or persistent dizziness * New or worsening neurological symptoms (weakness, numbness, difficulty speaking) Additional Instructions: * Keep a record of any episodes of dizziness, near-fainting, or fainting, including what you were doing at the time and how long the symptoms lasted. * Bring this information to your follow-up appointments. If you have any questions or concerns, contact your healthcare provider. You have been started on Norvasc (amlodipine) 2.5 mg daily for elevated blood pressure. Instructions for Starting Amlodipine Besylate (Norvasc) 2.5 mg for Blood Pressure Medication: * Amlodipine besylate (Norvasc) 2.5 mg tablet * Take 1 tablet by mouth once daily. * Take at the same time each day, with or without food. Monitoring Blood Pressure: * Check your blood pressure at home daily, ideally at the same time each day. * Sit quietly for 5 minutes before measuring. * Record each reading in a blood pressure log, noting the date, time, and reading. * Bring your log to your follow-up appointments. Possible Side Effects: * Common: Swelling of the ankles or feet, headache, flushing, dizziness. * Less common: Palpitations, fatigue. * If you experience severe dizziness, fainting, chest pain, or swelling of the face/lips, seek medical attention promptly. Follow-Up: * Schedule a follow-up appointment with your PCP as directed to review your blood pressure readings and response to medication. Additional Instructions: * Do not stop taking amlodipine without discussing with your provider. * Continue all other medications as prescribed. * Notify your provider if you notice significant swelling, persistent dizziness, or any new symptoms. Patient Instructions: Antibiotic Form Patient Language: Italian Stand Alone Forms: General Discharge Information Follow-up/Referrals: Edgard Marquez APRN [Primary Care Provider, Internal Medicine] - Call for Appointment Referral Note: 1 week Agatha Tabares MD [Physician, Cardiology] Referral Note: call for heart monitor to be arranged Discharge Medications: New amlodipine [Norvasc] 2.5 mg tablet 2.5 mg PO DAILY Qty: 30 0RF Continued carbidopa-levodopa 25-100 mg tablet 1 tablet PO TID Date of admission: 02/11/25 10:03 Primary Care Provider: Edgard Marquez Admitting Provider: Debby Wilkerson Attending physician on admission: Debby Wilkerson Condition: Stable
[2025-02-12 12:00] VITALS: PULSE 88
[2025-02-12 13:54] LABS: Hemoglobin A1C 5.5 % (<5.7)
--- NOTE | 2025-02-13 08:27 | PCCCNOTE ---
Spoke with RN and pt. requested discharge yesterday. Decision from family was that they would not want placement into SNF vs [facility]. They are only interested in HH services. Contacted Jordyn who confrims this. A referral to [facility] was made Sunday, 02/13 for PT/OT services. Requested Enedelia contact Jordyn for anticipated start of service.
[2025-02-13 14:56] LABS: Vitamin B12 791.0 pg/mL (239-931)
== END 2025-02-12 14:30 | disposition home health service (06) | DRG 312 ==
LOC: ANHED 15:37 → ANH3MEDSUR 17:01
PROVIDERS: Internal Medicine; Admitting Provider Internal Medicine; Emergency Provider Emergency Medicine; PCP Nurse Practitioner; Visit Provider Internal Medicine
DX: R55 Syncope and collapse (principal); G20.A1 Parkinson's disease without dyskinesia, without mention of fluctuations; I10 Essential (primary) hypertension; R29.6 Repeated falls; E78.2 Mixed hyperlipidemia
CPT/HCPCS: 36415; 70450; 70496; 70498; 70553; 71045; 80053; 80061; 81003; 82607; 82746; 82948; 83036; 83880; 84484; 85025; 85610; 85730; 93005; 93306; 96375; 97162; 97167; 99285; A9270; A9577; G0378; Q9967